=== PATIENT | female | born 1995 ===

== ENCOUNTER 2016-07-14 18:23 | Emergency (ER) | payer OTHER ==
[~2016-07-14] VITALS: Ht 154.9 cm; Wt 44.1 kg
[2016-07-14 18:28] VITALS: TEMP 36.6; Ht 154.9 cm; Wt 44.1 kg
[2016-07-14] MEDS ORDERED: BCPILLS PO (19:17)
[2016-07-14] MEDS ORDERED: ONDANSETRON INJ 2 MG/ML 2 ML VIAL IV STA (19:18)
[2016-07-14] MEDS ORDERED: DiphenhydrAMINE HCL 50 MG/ML VIAL IV STA (19:18)
[2016-07-14] MEDS ORDERED: SODIUM CHLORIDE 0.9% 1000ML 1,000 ML IV STA (19:18)
[2016-07-14] MEDS ORDERED: KETOROLAC TROMETHAMINE 30 MG/ML VIAL IV STA (19:18)
[2016-07-14 19:48] LABS: HEMATOCRIT 37.2 % (37-47); MEAN CORPUSCULAR HEMOGLOBIN 28.1 pg (25-34); MEAN CORPUSCULAR HGB CONC 34.7 g/dl (32-36); MEAN PLATELET VOLUME 9.9 fL (7.4-10.4); PLATELET COUNT 207 K/uL (130-400); RED BLOOD COUNT 4.59 M/uL (4.2-5.4); WHITE BLOOD COUNT 4.74 K/uL (4.8-10.8)
--- NOTE | 2016-07-14 20:13 | DIAGNOSTIC IMAGING REPORT ---
CT HEAD WITHOUT CONTRAST (CT) CLINICAL HISTORY: Severe headache COMPARISON STUDY: No previous studies for comparison. TECHNIQUE: Axial CT of the brain is performed from the vertex to the skull base. IV contrast was not administered for this examination. CT DOSE: 537.48 mGy.cm FINDINGS: No intra or extra-axial mass lesions are visualized. There is no CT evidence of acute cortical infarction. There is no evidence of midline shift. There is no acute hemorrhage. No calvarial fractures are visualized. There is no evidence of pathologic ventricular dilatation. There is no evidence of acute sinusitis IMPRESSION: Normal noncontrast head CT. Electronically signed by: Nii De La Cruz M.D. 07/14/2016 8:12 PM Dictated Date/Time: 07/14/2016 8:11 PM
[2016-07-14 20:14] LABS: PREG INTERNAL NEGATIVE QC NEG CLEAR BACKGROUND; PREG INTERNAL POSITIVE QC POS CONTROL LINE
[2016-07-14 20:16] LABS: CREATININE 0.64 mg/dl (0.60-1.20)
[2016-07-14 20:17] LABS: POTASSIUM 3.4 mmol/L (3.5-5.1)
--- NOTE | 2016-07-14 20:54 | EMERGENCY ROOM VISIT NOTE ---
History Report prepared by Latoya: Ina Andersen Under the Supervision of: Dr. Joao Chou M.D. First contact with patient: 19:12 Chief Complaint: HEADACHE Stated Complaint: HEADACHE - DIZZINESS History of Present Illness The patient is a 20 year old female who presents to the Emergency Room with complaints of a persistent headache starting earlier today. She reports that she got a headache and started feeling dizzy. She was in bed so she is unsure if she lost consciousness. She is still experiencing a headache. She has not taken anything for the headache. She reports that she does not often have headaches. She denies any dysuria, abdominal pain, nausea, vomiting, weakness in legs, or incontinence. She denies any other illness. She denies any chance of . Her last normal menstrual period was 2.5 weeks ago. She denies heavy bleeding with her period. She denies any alcohol use. There is a family history of migraines in her mother. She has a history of anemia. She has recently travelled to [place]. Source of History: patient Onset: earlier today Position: head Quality: ache Timing: other (persistent) Associated Symptoms: No abdominal pain, No nausea, No urinary symptoms, No vomiting Note: Pt reports feeling dizzy. Pt denies any weakness in the legs and incontinence. Review of Systems See HPI for pertinent positives & negatives. A total of 10 systems reviewed and were otherwise negative. Past Medical & Surgical Medical Problems: (1) Anemia Family History FH: lung disease FH: migraine headache Hypertension Social History Smoking Status: Current Some Day Smoker Alcohol Use: none Marital Status: single Housing Status: lives with friends Occupation Status: student Current/Historical Medications Scheduled Control Pills ( Control Pills), 1 TAB PO DAILY Allergies Coded Allergies: No Known Allergies (Unverified , 07/14/16) Physical Exam Vital Signs Date Time Temp Pulse Resp B/P Pulse Ox O2 Delivery O2 Flow Rate FiO2 07/14/16 21:10 78 18 99 07/14/16 21:01 78 18 99/66 99 Room Air 07/14/16 20:19 72 20 105/57 100 Room Air 07/14/16 18:28 36.6 76 18 109/73 100 Room Air Physical Exam GENERAL: Patient is well appearing and in mild distress. HEAD: No acute trauma, normocephalic atraumatic ENT: Mucous membranes moist, no nasal congestion. EYES: Equal/Reactive Bilaterally, No scleral icterus, Normal ROM NECK: No nuchal rigidity, no meningismus, trachea is midline, full ROM LUNGS: No dyspnea. Clear to auscultation and equal bilaterally. No wheeze, no rhonchi. HEART: Regular rate and rhythm. No murmurs, rubs, gallops appreciated. ABDOMEN: Soft, nontender, bowel sounds positive, no masses appreciated, no peritonitis. BACK: No midline tenderness, no CVA tenderness EXTREMITIES: Normal motion all extremities, no cyanosis, no edema. NEUROLOGIC: Awake, Alert, Oriented, no acute motor or sensory deficits, no focal weakness, cranial nerves grossly intact. SKIN: No rash, no jaundice, no diaphoresis. Medical Decision & Procedures ER Provider Diagnostic Interpretation: Radiology results and stated below per my review and radiologist interpretation: CT HEAD WITHOUT CONTRAST (CT) CLINICAL HISTORY: Severe headache COMPARISON STUDY: No previous studies for comparison. TECHNIQUE: Axial CT of the brain is performed from the vertex to the skull base. IV contrast was not administered for this examination. CT DOSE: 537.48 mGy.cm FINDINGS: No intra or extra-axial mass lesions are visualized. There is no CT evidence of acute cortical infarction. There is no evidence of midline shift. There is no acute hemorrhage. No calvarial fractures are visualized. There is no evidence of pathologic ventricular dilatation. There is no evidence of acute sinusitis IMPRESSION: Normal noncontrast head CT. Electronically signed by: Nii De La Cruz M.D. 07/14/2016 8:12 PM Dictated Date/Time: 07/14/2016 8:11 PM Laboratory Results 07/14/16 19:35 07/14/16 19:35 Test 07/14/16 19:35 Red Blood Count 4.59 M/uL (4.2-5.4) Mean Corpuscular Volume 81.0 fL (80-100) Mean Corpuscular Hemoglobin 28.1 pg (25-34) Mean Corpuscular Hemoglobin Concent 34.7 g/dl (32-36) RDW Standard Deviation 39.8 fL (36.4-46.3) RDW Coefficient of Variation 13.4 % (11.5-14.5) Mean Platelet Volume 9.9 fL (7.4-10.4) Anion Gap 9.0 mmol/L (3-11) Est Creatinine Clear Calc Drug Dose 97.6 ml/min Estimated GFR () 148.9 Estimated GFR (Non- 128.5 BUN/Creatinine Ratio 12.0 (10-20) Calcium Level 9.0 mg/dl (8.5-10.1) Human Chorionic Gonadotropin, Qual NEG (NEG) Laboratory results as reviewed by me. Medications Administered Medications (Trade) Dose Ordered Sig/Oj Route Start Time Stop Time Status Last Admin Dose Admin Diphenhydramine HCl (Benadryl Inj) 25 mg NOW STAT IV 07/14/16 19:18 07/14/16 19:20 DC 07/14/16 19:52 25 MG Ketorolac Tromethamine (Toradol Inj) 30 mg NOW STAT IV 07/14/16 19:18 07/14/16 19:20 DC 07/14/16 19:52 30 MG Ondansetron HCl 4 mg 4 mg NOW STAT IV 07/14/16 19:18 07/14/16 19:20 DC 07/14/16 19:51 4 MG Sodium Chloride (Nss 1000ml) 1,000 ml @ 999 mls/hr Q1H1M STAT IV 07/14/16 19:18 07/14/16 20:18 DC 07/14/16 19:52 999 MLS/HR ECG Indication: weakness Rate (beats per minute): 73 Rhythm: normal sinus Findings: no acute ischemic change, no ectopy ED Course 1913: The patient was evaluated in room C7. A complete history and physical exam was performed. 1917: NSS 1000 ml @ 999 mls/hr IV, Zofran Inj 4 mg IV, Toradol Inj 30 mg IV, Benadryl Inj 25 mg IV. 2022: I reevaluated the patient. She is feeling better. 2055: I reevaluated the patient. She is resting comfortably. I discussed results and discharge instructions: she verbalized understanding and agreement. The patient is ready for discharge. Medical Decision Differential: Headache, Migraine, Cluster Headache, Seizure, Meningitis, Sinusitis, CO exposure, ICH/SAH, Infectious, Tumor, Sinus Thrombosis, Arterial Dissection, amongst other pathologies entertained. Pleasant 20 yr old female with mild headache arrives with some lightheadedness and earlier possible syncope though she is unclear. She looks well without any evidence of meningitis. No significant history of headaches though does not mother with migraines. CT head done given symptoms which fortunately was negative. Without neuro deficits nor ct abnormality I do not feel that LP nor MRI indicated at this time. Not anemic. Labs look good. EKG normal. She has complete resolution of symptoms with above and wants to go home. Discussed RTED if worsening or other concerns. Stable at discharge. Impression Primary Impression: Headache Additional Impression: Dehydration Scribe Attestation The scribe's documentation has been prepared under my direction and personally reviewed by me in its entirety. I confirm that the note above accurately reflects all work, treatment, procedures, and medical decision making performed by me. Departure Information Dispostion Home / Self-Care Referrals [facility] Forms HOME CARE DOCUMENTATION FORM, IMPORTANT VISIT INFORMATION, School Instructions Patient Instructions My [facility] Problem Qualifiers Primary Impression: Headache Headache type: unspecified Headache chronicity pattern: acute headache Intractability: not intractable Qualified Codes: R51 - Headache
[2016-07-14 21:01] VITALS: BP 99/66
[2016-07-14 21:10] VITALS: PULSE 78; O2SAT 99
== END 2016-07-14 21:10 | disposition home or self-care (01) ==
LOC: C.EDB 18:26 → C.EDC 21:10
DX: R51 Headache (principal); E86.0 Dehydration; D64.9 Anemia, unspecified; F17.210 Nicotine dependence, cigarettes, uncomplicated; Z79.3 Long term (current) use of hormonal contraceptives